=== PATIENT | male | born 1960 | race Caucasian/White ===

== ENCOUNTER 2017-03-10 12:22 | Observation (INO) | payer OTHER ==
[2017-03-10 13:05] LABS: ABSOLUTE BASOPHILS # (AUTO) 0.1 10^3/uL (0.0-0.2); ABSOLUTE EOSINOPHILS # (AUTO) 0.1 10^3/uL (0.0-0.6); ABSOLUTE LYMPHOCYTES (AUTO) 1.9 10^3/uL (0.5-4.7); ABSOLUTE MONOCYTES (AUTO) 0.5 10^3/uL (0.1-1.4); ABSOLUTE NEUT (AUTO) 3.1 10^3/uL (1.7-8.2); BASOPHILS % (AUTO) 1.1 % (0-2); EOSINOPHILS % (AUTO) 2.2 % (0-6); HEMATOCRIT 40.1 % (37.9-51.0); HEMOGLOBIN 14.1 g/dL (13.5-17.0); HGB HCT DIFFERENCE 2.2; MEAN CORPUSCULAR HEMOGLOBIN 33.2 pg (27.0-33.4); MEAN CORPUSCULAR HGB CONC 35.1 g/dL (32.0-36.0); MEAN CORPUSCULAR VOLUME 95 fl (80-97); MONOCYTES % (AUTO) 8.7 % (3-13); RED BLOOD COUNT 4.24 10^6/uL (4.35-5.55); RED CELL DISTRIBUTION WIDTH 13.3 % (11.5-14.0); WHITE BLOOD COUNT 5.7 10^3/uL (4.0-10.5)
[2017-03-10 13:17] LABS: ALANINE AMINOTRANSFERASE 32 U/L (21-72); ALBUMIN 4.3 g/dL (3.5-5.0); ALKALINE PHOSPHATASE 58 U/L (38-126); ANION GAP 12 (5-19); ASPARTATE AMINO TRANSFERASE 31 U/L (17-59); BILIRUBIN,DIRECT 0.3 mg/dL (0.0-0.4); BILIRUBIN,TOTAL 0.5 mg/dL (0.2-1.3); BLOOD UREA NITROGEN 13 mg/dL (7-20); CALCIUM 9.1 mg/dL (8.4-10.2); CARBON DIOXIDE 27 mmol/L (22-30); CHLORIDE 107 mmol/L (98-107); CREATINE KINASE 267 U/L (55-170); CREATININE RESULT 0.79 mg/dL (0.52-1.25); GLUCOSE 92 mg/dL (75-110); POTASSIUM 4.1 mmol/L (3.6-5.0); SODIUM 146.3 mmol/L (137-145)
[2017-03-10] MEDS ORDERED: PROCHLORPERAZINE EDISYLATE INJ 10 MG/2 ML VIAL IV ONE (13:17)
[2017-03-10] MEDS ORDERED: DIPHENHYDRAMINE HCL 50 MG/ML VIAL IV ONE (13:17)
[2017-03-10 13:29] LABS: CREATINE KINASE MB 2.94 ng/mL (<4.55)
[2017-03-10 13:30] LABS: TROPONIN I < 0.012 ng/mL
--- NOTE | 2017-03-10 13:49 | RADIOLOGY REPORT (SQ) ---
EXAM DESCRIPTION: CHEST SINGLE VIEW COMPLETED DATE/TIME: 03/10/2017 12:58 pm REASON FOR STUDY: cp COMPARISON: 03/30/2011 EXAM PARAMETERS: NUMBER OF VIEWS: One view. TECHNIQUE: Single frontal radiographic view of the chest acquired. RADIATION DOSE: NA LIMITATIONS: None. FINDINGS: LUNGS AND PLEURA: No opacities, masses or pneumothorax. No pleural effusion. MEDIASTINUM AND HILAR STRUCTURES: No masses. Contour normal. HEART AND VASCULAR STRUCTURES: Heart normal in size. Normal vasculature. BONES: No acute findings. HARDWARE: None in the chest. OTHER: No other significant finding. IMPRESSION: NO ACUTE RADIOGRAPHIC FINDING IN THE CHEST. TECHNICAL DOCUMENTATION: JOB ID: [id number]
--- NOTE | 2017-03-10 14:20 | ER Document Report ---
ED General - General Chief Complaint: Chest Pain Stated Complaint: CHEST PAIN Time Seen by Provider: 03/10/17 12:32 Mode of Arrival: Ambulatory Information source: Patient Notes: 57 yr old male presents with complaints of midsternal left sided chest pressure sensation. Patient has a history of hypercholesterolemia hypertension. Denies any previous cardiac episodes. Patient is unsure if he has had a stress test or not 3 years ago. Patient overall states that he has had a headache as well for 3-4 days as well as his chest pressure - HPI Onset: Other - 2-3 days Onset/Duration: Persistent Quality of pain: Pressure Severity: Mild Pain Level: 1 Associated symptoms: Chest pain, Headache Exacerbated by: Denies Relieved by: Denies Similar symptoms previously: No Recently seen / treated by doctor: No - Related Data Allergies/Adverse Reactions: No Known Allergies Allergy (Unverified 03/30/11 19:41) Past Medical History - Social History Smoking Status: Current Every Day Smoker Cigarette use (# per day): Yes Chew tobacco use (# tins/day): No Smoking Education Provided: No Frequency of alcohol use: None Drug Abuse: None Family History: Reviewed & Not Pertinent - Past Medical History Cardiac Medical History: Reports: Hx Hypercholesterolemia, Hx Hypertension Pulmonary Medical History: Reports: Hx Bronchitis, Hx Pneumonia Past Surgical History: Reports: Hx Nose Surgery - rhinoplasty, Hx Orthopedic Surgery - lower back surgery, bilateral carpal tunnel, L elbow surgery Review of Systems - Review of Systems Notes: REVIEW OF SYSTEMS: CONSTITUTIONAL : Denies fever, chills, or sweats. Denies recent illness. EENT: Denies eye, ear, throat, or mouth pain or symptoms. Denies nasal or sinus congestion or discharge. Denies throat, tongue, or mouth swelling or difficulty swallowing. CARDIOVASCULAR: admits to chest pain RESPIRATORY: Denies cough, cold, or chest congestion. Denies shortness of breath, difficulty breathing, or wheezing. GASTROINTESTINAL: Denies abdominal pain or distention. Denies nausea, vomiting , or diarrhea. Denies blood in vomitus, stools, or per rectum. Denies black, tarry stools. Denies constipation. GENITOURINARY: Denies difficulty urinating, painful urination, burning, frequency, blood in urine, or discharge. MUSCULOSKELETAL: Denies back or neck pain or stiffness. Denies joint pain or swelling. SKIN: Denies rash, lesions or sores. HEMATOLOGIC : Denies easy bruising or bleeding. LYMPHATIC: Denies swollen, enlarged glands. NEUROLOGICAL: admits to headache PSYCHIATRIC: Denies anxiety or stress. Denies depression, suicidal ideation, or homicidal ideation. ALL OTHER SYSTEMS REVIEWED AND NEGATIVE. Dictation was performed using [email or web address] voice recognition software PHYSICAL EXAMINATION: GENERAL: Well-appearing, well-nourished and in no acute distress. HEAD: Atraumatic, normocephalic. EYES: Pupils equal round and reactive to light, extraocular movements intact, sclera anicteric, conjunctiva are normal. ENT: Nares patent, oropharynx clear without exudates. Moist mucous membranes. NECK: Normal range of motion, supple without lymphadenopathy LUNGS: Breath sounds clear to auscultation bilaterally and equal. No wheezes rales or rhonchi. HEART: Regular rate and rhythm without murmurs ABDOMEN: Soft, nontender, nondistended abdomen. No guarding, no rebound. No masses appreciated. Musculoskeletal: Normal range of motion, no pitting or edema. No cyanosis. NEUROLOGICAL: Cranial nerves grossly intact. Normal speech, normal gait. Normal sensory, motor exams PSYCH: Normal mood, normal affect. SKIN: Warm, Dry, normal turgor, no rashes or lesions noted. Physical Exam - Vital signs Vitals: Resp Pulse Ox 12 100 03/10/17 12:35 03/10/17 12:35 Course - Re-evaluation Re-evalutation: 03/10/17 14:29 1st set of cardiac enzymes were negative, pt was treated for his headahce and notes complete resolution pt denies any other concerns at this time, I will observe in the hospital for acs rule out - Vital Signs Vital signs: Temp Pulse Resp BP Pulse Ox 20 128/84 H 99 03/10/17 13:01 03/10/17 13:01 03/10/17 13:01 - Laboratory Result Diagrams: 03/10/17 12:40 03/10/17 12:40 Laboratory results interpreted by me: 03/10/17 03/10/17 12:40 12:40 RBC 4.24 L Sodium 146.3 H Creatine Kinase 267 H - Diagnostic Test Radiology reviewed: Image reviewed, Reports reviewed - EKG Interpretation by Me EKG shows normal: Sinus rhythm, [place], Intervals, QRS Complexes Discharge - Discharge Clinical Impression: Chest pain Qualifiers: Chest pain type: unspecified Qualified Code(s): R07.9 - Chest pain, unspecified Headache Qualifiers: Headache type: unspecified Headache chronicity pattern: acute headache Intractability: not intractable Qualified Code(s): R51 - Headache Condition: Stable Disposition: ADMITTED OBSERVATION Admitting Provider: Hospitalist Unit Admitted: Telemetry Referrals: SIVLINO ÁLVAREZ FNP [Primary Care Provider] - Follow up as needed
[2017-03-10] MEDS ORDERED: ONDANSETRON 4 MG TAB.RAPDIS PO PRN (15:33)
[2017-03-10] MEDS ORDERED: ACETAMINOPHEN 325 MG TABLET PO PRN (15:33)
[2017-03-10] MEDS ORDERED: HYDROCODONE/ACETAMINOPHEN 10-325 MG TABLET PO PRN (15:40)
[2017-03-10] MEDS ORDERED: DEXTROSE 40% GEL 15 GM TUBE PO PRN ×2 (15:53)
[2017-03-10] MEDS ORDERED: DEXTROSE 50%-WATER 25 GM/50 ML DISP.SYRIN IV PRN ×2 (15:53)
[2017-03-10] MEDS ORDERED: GLUCAGON,HUMAN RECOMB 1 MG INJ SUBCUT PRN (15:53)
--- NOTE | 2017-03-10 15:55 | PDOC H&P ---
History of Present Illness Admission Date/PCP: 03/10/17 14:56 ANETTE FRANK Patient complains of: Headache and chest pain for 2 days History of Present Illness: JOHN RANDHAWA is a 57 year old male sent to the emergency room with complaint of headache that is very severe. Patient reports that he does have history of migraines and states that he has had headache for proximal approximately 3 days. Patient reports that in the past he has had Botox injections for migraines that did help. Patient states that that has been several years ago and he has not followed up with the neurologist that did that procedure for him. Patient also reports that he has been lifting heavy objects out at home. Patient also reports that he has been doing a lot of gardening as well. Patient states that he does not develop chest pain 2 days ago and was noted to be sweating with episode. Patient denies any shortness of breath or nausea or vomiting. Patient states his past medical history is only significant for hypertension hyperlipidemia and migraines. Patient does report that he smokes a pack per day for greater than 30 years. She reports that in [place] he had a cardiac workup done 5 years ago for syncope which was negative. Past Medical History Cardiac Medical History: Reports: Hyperlipidema, Hypertension Pulmonary Medical History: Reports: Bronchitis, Pneumonia Past Surgical History Past Surgical History: Reports: Orthopedic Surgery - lower back surgery, bilateral carpal tunnel, L elbow surgery Social History Smoking Status: Current Every Day Smoker - Advance Directive Resuscitation Status: Full Code Family History Family History: Reviewed & Not Pertinent Parental Family History Reviewed: Yes Children Family History Reviewed: Yes Sibling(s) Family History Reviewed.: Yes Medication/Allergy Home Medications: Lisinopril/Hydrochlorothiazide [Zestoretic 10-12.5 mg Tablet] 1 tab PO DAILY 01/30 Aspirin [Aspirin 81 mg Chewable Tablet] 81 mg PO DAILY 03/10/17 Hydrocodone Bit/Acetaminophen [Hydrocodon-Acetaminophn 10-325] 0.5 tab PO BIDP PRN 03/10/17 Simvastatin [Zocor 10 mg Tablet] 10 mg PO QHS 03/10/17 Allergies/Adverse Reactions: No Known Allergies Allergy (Unverified 03/30/11 19:41) Review of Systems Constitutional: ABSENT: chills, fever(s), headache(s), weight gain, weight loss Eyes: ABSENT: visual disturbances Ears: ABSENT: hearing changes Cardiovascular: PRESENT: chest pain. ABSENT: dyspnea on exertion, edema, orthropnea, palpitations Respiratory: ABSENT: cough, hemoptysis Gastrointestinal: ABSENT: abdominal pain, constipation, diarrhea, hematemesis, hematochezia, nausea, vomiting Genitourinary: ABSENT: dysuria, hematuria Musculoskeletal: PRESENT: back pain, muscle weakness Integumentary: ABSENT: rash, wounds Neurological: PRESENT: other - Headache Psychiatric: ABSENT: anxiety, depression, homidical ideation, suicidal ideation Endocrine: ABSENT: cold intolerance, heat intolerance, polydipsia, polyuria Hematologic/Lymphatic: ABSENT: easy bleeding, easy bruising Physical Exam Vital Signs: Temp Pulse Resp BP Pulse Ox 12 143/80 H 98 03/10/17 15:01 03/10/17 15:01 03/10/17 15:01 General appearance: PRESENT: mild distress, well-developed, well-nourished Head exam: PRESENT: atraumatic, normocephalic Eye exam: PRESENT: conjunctiva pink, EOMI. ABSENT: scleral icterus Ear exam: PRESENT: normal external ear exam Mouth exam: PRESENT: moist, tongue midline Neck exam: ABSENT: carotid bruit, JVD, lymphadenopathy, thyromegaly Respiratory exam: PRESENT: clear to auscultation kun. ABSENT: rales, rhonchi, wheezes Cardiovascular exam: PRESENT: RRR. ABSENT: diastolic murmur, rubs, systolic murmur Pulses: PRESENT: normal dorsalis pedis pul Vascular exam: PRESENT: normal capillary refill GI/Abdominal exam: PRESENT: normal bowel sounds, soft. ABSENT: distended, guarding, mass, organolmegaly, rebound, tenderness Rectal exam: PRESENT: deferred Extremities exam: PRESENT: full ROM. ABSENT: calf tenderness, clubbing, pedal edema Musculoskeletal exam: PRESENT: other - Positive for subscapularis tenderness positive for trapezius muscle tenderness underneath arms bilaterally into lower aspect of chest. No tenderness to palpation along the clavicles bilaterally Neurological exam: PRESENT: alert, awake, oriented to person, oriented to place , oriented to time, oriented to situation, CN II-XII grossly intact, motor sensory deficit, other - It has returned off and room eyes were closed patient spoke to me during most of encounter with eyes closed. Psychiatric exam: PRESENT: appropriate affect, normal mood. ABSENT: homicidal ideation, suicidal ideation Skin exam: PRESENT: dry, intact, warm. ABSENT: cyanosis, rash Results Impressions: Chest X-Ray 03/10/17 12:28 IMPRESSION: NO ACUTE RADIOGRAPHIC FINDING IN THE CHEST. Assessment & Plan - Diagnosis (1) Migraine Is this a current diagnosis for this admission?: Yes Plan: Patient given Benadryl and Compazine in the emergency room. Patient is currently sleeping. Will monitor patient. (2) Chest pain Qualifiers: Chest pain type: unspecified Qualified Code(s): R07.9 - Chest pain, unspecified Is this a current diagnosis for this admission?: Yes Plan: Patient's chest pain is most likely musculoskeletal related due to patient having reproducible chest pain on exam. Patient's first set of troponins are negative. Have ordered for EKG. Have ordered for serial troponins. Will order 2D echo and nuclear stress test for a.m. Have ordered hemoglobin A1c and lipid profile as well. (3) Musculoskeletal chest pain Is this a current diagnosis for this admission?: Yes Plan: Supportive care. (4) Tobacco abuse Is this a current diagnosis for this admission?: Yes Plan: Discussed the importance of discontinuing tobacco abuse. (5) Hypernatremia Is this a current diagnosis for this admission?: Yes Plan: Check BMP and a.m. Patient most likely slightly volume depleted. Will give IV fluids. (6) Cervical spine disease Is this a current diagnosis for this admission?: Yes Plan: Patient has history of degenerative cervical spine disease. This is most likely contributing to patient's back pain as well as to patient's migraines. Recommend supportive care. (7) DVT prophylaxis Is this a current diagnosis for this admission?: Yes Plan: SCDs (8) Volume depletion Is this a current diagnosis for this admission?: Yes Plan: We will place patient on light maintenance fluids. - Time Time Spent: 30 to 50 Minutes
[2017-03-10] MEDS ORDERED: INFLUENZA ADLT QUAD (36MOS+) 2017-18 VAC 0.5 ML SYR IM PRN (16:58)
[2017-03-10] MEDS ORDERED: NICOTINE 21 MG/24 HR PATCH.TD24 TD ONE (18:30)
[2017-03-10] MEDS ORDERED: HYDROCHLOROTHIAZIDE 12.5 MG CAPSULE PO ONE (18:30)
[2017-03-10] MEDS ORDERED: LISINOPRIL 10 MG TABLET PO ONE (18:30)
[2017-03-10] MEDS ORDERED: SIMVASTATIN 10 MG TABLET PO SCH (22:00)
[2017-03-11] MEDS ORDERED: LANSOPRAZOLE 30 MG TAB.RAP.DR PO SCH (06:00)
[2017-03-11 06:48] LABS: ANION GAP 12 (5-19); BLOOD UREA NITROGEN 14 mg/dL (7-20); CALCIUM 9.8 mg/dL (8.4-10.2); CARBON DIOXIDE 27 mmol/L (22-30); CHLORIDE 107 mmol/L (98-107); CHOLESTEROL 198.05 mg/dL (0-200); CREATININE RESULT 0.94 mg/dL (0.52-1.25); Direct HDL 54 mg/dL (>40); GLUCOSE 106 mg/dL (75-110); POTASSIUM 4.8 mmol/L (3.6-5.0); SODIUM 146.2 mmol/L (137-145); TRIGLYCERIDES 165 mg/dL (<150)
[2017-03-11 06:59] LABS: DIRECT LDL 122 mg/dL (<100)
[2017-03-11 07:20] LABS: THYROID STIMULATING HORMONE 2.61 uIU/mL (0.47-4.68)
[2017-03-11] MEDS ORDERED: LISINOPRIL 10 MG TABLET PO SCH (10:00)
[2017-03-11] MEDS ORDERED: HYDROCHLOROTHIAZIDE 12.5 MG CAPSULE PO SCH (10:00)
[2017-03-11] MEDS ORDERED: NICOTINE 21 MG/24 HR PATCH.TD24 TD SCH (10:00)
[2017-03-11] MEDS ORDERED: ASPIRIN 81 MG TABLET, CHEWABLE PO SCH (10:00)
[2017-03-11] MEDS ORDERED: (PENDING PHARMACY ID) (Lisinopril/Hydrochlorothiazide [Zestoretic 10-12.5 Mg Tablet] 1 TAB PO SCH (10:00)
--- NOTE | 2017-03-11 10:33 | EKG REPORT ---
SEVERITY:- ABNORMAL ECG - SINUS RHYTHM MULTIPLE VENTRICULAR PREMATURE COMPLEXES RBBB AND LPFB : Confirmed by: Keisha Nash MD 11-Mar-2017 10:32:29
--- NOTE | 2017-03-11 10:33 | EKG REPORT ---
SEVERITY:- ABNORMAL ECG - SINUS RHYTHM PAIRED VENTRICULAR PREMATURE COMPLEXES FIRST DEGREE AV BLOCK PROBABLE LEFT ATRIAL ABNORMALITY RIGHT BUNDLE BRANCH BLOCK : Confirmed by: Keisha Nash MD 11-Mar-2017 10:32:36
--- NOTE | 2017-03-11 13:07 | DRAGON STRESS TEST REPORT ---
INTRAVENOUS LEXISCAN CARDIOLITE STRESS TEST USING SINGLE PHOTON EMMISION COMPUTERIZED TOMOGRAPHIC. DATE OF PROCEDURE: March 11, 2017 INDICATION : Chest pain CARDIAC RISK FACTORS: Hypertension dyslipidemia and smoking RESTING EKG: Sinus rhythm, right bundle branch block pattern, frequent ventricular ectopies STRESS EKG: No significant changes noted with LexiScan bolus REASON FOR TERMINATION: Protocol. PROCEDURE REPORT: Baseline heart rate 71 beats per minute with blood pressure of 106/75. Patient had no significant complaints. Heart rate at 2 minutes post bolus 77 with a blood pressure of 114/66. 3 minutes post bolus heart rate 74 with blood pressure of 101/57. No significant EKG changes were noted. Patient had a hypotensive response with nausea and diaphoresis but no significant ST segment changes were noted.. Patient injected with Aminophyllin 75 mg at 3 minutes or later after Lexiscan bolus. CONCLUSIONS: Normal EKG and hemodynamic response to IV LexiScan. NUCLEAR DATA: At rest the patient was given 14.09 millicuries of technetium 99 sestamibi injected intravenously. As per protocol rest gated SPECT images were obtained. Subsequently the patient was given intravenous LexiScan at a dose of 0.4 mg in 5 mL intravenously, followed by flush with normal saline. Subsequently the stress dose of 42.0 millicuries of technetium 99 sestamibi was injected intravenously. As per protocol stress gated images were obtained. NUCLEAR INTERPRETATION: Both raw and processed data were used for interpretation. Visual, qualitative, computer-generated quantitative data was used. There was good myocardial uptake of technetium compound. Motion artifact and soft tissue attenuations were noted. Increased visceral uptake was noted. No definitive areas of transient perfusion defect noted. No definitive areas of fixed perfusion defect or scars noted. EKG gated imaging showed LV EF at 44 %, rest and stress gated EF similar visually. T. I D. ratio was 1.14. Lung heart ratio noted to be within normal limits 0.37. No significant extracardiac and abnormal radiotracer activities were noted. RV free wall uptake was noted to be WNL. IMPRESSION: Also refer to comments under nuclear interpretation. Also test results needs to be interpreted in the context of pretest probability. 1. There is no definitive scintigraphic evidence of LexiScan induced myocardial ischemia. 2. There is no definitive scintigraphic evidence of myocardial infarction/scar. 3. EKG gated imaging shows left ventricular ejection fraction of approximately 44 %. 4. Clinical correlation requested as occasionally single vessel disease or balanced ischemia could be missed. In approximately 10% of the cases Lexiscan may not cause adequate vasodilatory stress. RECOMMENDATIONS: Aggressive risk factor modification, medical therapy. Clinical correlation with echocardiogram derived ejection fraction. Inability to exercise by itself can lead to increased cardiovascular event risks. Consider cardiology consultation and or follow-up if clinically indicated. I AM AVAILABLE FOR CARDIOLOGY CONSULTATION AND FOLLOWUP IF REQUESTED BY PMD Tima Owen M.D., [facility] [employer], Board certified in cardiovascular diseases, Nuclear cardiology, Echocardiography Cardiac CT and cardiac MRI Ph. [phone] [facility]
[2017-03-11] MEDS ORDERED: REGADENOSON INJ 0.4 MG/5 ML DISP.SYRIN IV ONE (14:07)
[2017-03-11] MEDS ORDERED: AMINOPHYLLINE INJ/PF 250 MG/10 ML SDV IV ONE (14:07)
--- NOTE | 2017-03-11 14:28 | PDOC DISCHARGE SUMMARY ---
General - Admit/Disc Date/PCP Admission Date/Primary Care Provider: 03/10/17 15:33 ANETTE FRANK Discharge Date: 03/11/17 - Discharge Diagnosis (1) Migraine Is this a current diagnosis for this admission?: Yes Summary: Continue home medication and cervical spine pillow (2) Chest pain Is this a current diagnosis for this admission?: Yes Summary: Stress test demonstrates no evidence of ischemia. 2D echo pending at time of discharge. (3) Musculoskeletal chest pain Is this a current diagnosis for this admission?: Yes Summary: Encourage patient to follow with PCP for chronic back pain and neck pain. Patient told to avoid lifting heavy objects (4) Tobacco abuse Is this a current diagnosis for this admission?: Yes Summary: Encourage discontinue use of tobacco products (5) Hypernatremia Is this a current diagnosis for this admission?: Yes Summary: Encourage increased water intake. (6) Cervical spine disease Is this a current diagnosis for this admission?: Yes Summary: Cervical neck pillow and follow with primary doctor (7) Volume depletion Is this a current diagnosis for this admission?: Yes Summary: Patient given IV fluids while in hospital - Additional Information Resuscitation Status: Full Code Discharge Diet: Cardiac Discharge Activity: Activity As Tolerated Home Medications: Lisinopril/Hydrochlorothiazide [Zestoretic 10-12.5 mg Tablet] 1 tab PO DAILY 01/30 Aspirin [Aspirin 81 mg Chewable Tablet] 81 mg PO DAILY 03/10/17 Hydrocodone Bit/Acetaminophen [Hydrocodon-Acetaminophn 10-325] 0.5 tab PO BIDP PRN 03/10/17 Simvastatin [Zocor 10 mg Tablet] 10 mg PO QHS 03/10/17 History of Present Illness Patient complains of: Chest pain and headache History of Present Illness: JOHN RANDHAWA is a 57 year old male sent to the emergency room with complaint of headache that is very severe. Patient reports that he does have history of migraines and states that he has had headache for proximal approximately 3 days. Patient reports that in the past he has had Botox injections for migraines that did help. Patient states that that has been several years ago and he has not followed up with the neurologist that did that procedure for him. Patient also reports that he has been lifting heavy objects out at home. Patient also reports that he has been doing a lot of gardening as well. Patient states that he does not develop chest pain 2 days ago and was noted to be sweating with episode. Patient denies any shortness of breath or nausea or vomiting. Patient states his past medical history is only significant for hypertension hyperlipidemia and migraines. Patient does report that he smokes a pack per day for greater than 30 years. She reports that in [place] he had a cardiac workup done 5 years ago for syncope which was negative. Hospital Course Hospital Course: 57 year old presented with complaint of headache and chest pain. Pt was treated for migraine. Pt was arranged for stress test which was normal. Pt's troponins were normal. Pt was sodium was elevated at time of admission. Pt was given IVFs for volume expansion. Pt did well without anyother issues. Physical Exam Vital Signs: Temp Pulse Resp BP Pulse Ox 98.6 F 47 L 12 119/66 99 03/11/17 12:42 03/11/17 12:42 03/11/17 12:42 03/11/17 12:42 03/11/17 12:42 Intake & Output 03/10/17 03/11/17 03/12/17 06:59 06:59 06:59 Intake Total 400 Balance 400 Weight 88.7 kg General appearance: PRESENT: no acute distress, well-developed, well-nourished Head exam: PRESENT: atraumatic, normocephalic Eye exam: PRESENT: conjunctiva pink, EOMI. ABSENT: scleral icterus Ear exam: PRESENT: normal external ear exam Mouth exam: PRESENT: moist, tongue midline Neck exam: ABSENT: carotid bruit, JVD, lymphadenopathy, thyromegaly Respiratory exam: PRESENT: clear to auscultation kun. ABSENT: rales, rhonchi, wheezes Cardiovascular exam: PRESENT: RRR. ABSENT: diastolic murmur, rubs, systolic murmur Pulses: PRESENT: normal dorsalis pedis pul Vascular exam: PRESENT: normal capillary refill GI/Abdominal exam: PRESENT: normal bowel sounds, soft. ABSENT: distended, guarding, mass, organolmegaly, rebound, tenderness Rectal exam: PRESENT: deferred Extremities exam: PRESENT: full ROM. ABSENT: calf tenderness, clubbing, pedal edema Neurological exam: PRESENT: alert, awake, oriented to person, oriented to place , oriented to time, oriented to situation, CN II-XII grossly intact. ABSENT: motor sensory deficit Psychiatric exam: PRESENT: appropriate affect, normal mood. ABSENT: homicidal ideation, suicidal ideation Skin exam: PRESENT: dry, intact, warm. ABSENT: cyanosis, rash Results Laboratory Results: 03/11/17 05:55 03/11/17 03/11/17 05:55 05:55 Sodium 146.2 H Potassium 4.8 Chloride 107 Carbon Dioxide 27 Anion Gap 12 BUN 14 Creatinine 0.94 Est GFR ( Amer) > 60 Est GFR (Non-Af Amer) > 60 Glucose 106 Calcium 9.8 Triglycerides 165 H Cholesterol 198.05 LDL Cholesterol Direct 122 H VLDL Cholesterol 33.0 H HDL Cholesterol 54 TSH 2.61 Free T4 0.83 03/10/17 03/10/17 03/11/17 17:35 23:55 05:55 Troponin I < 0.012 0.014 < 0.012 Impressions: Chest X-Ray 03/10/17 12:28 IMPRESSION: NO ACUTE RADIOGRAPHIC FINDING IN THE CHEST.
[2017-03-11 14:48] VITALS: BP 133/76
== END 2017-03-11 15:05 | disposition home or self-care (01) ==
LOC: ER 12:22 → EH 14:56 → UNDOADMOB 14:56 → 4N 15:33 → EH 16:08 → 4N 16:08
PROC: 3E0234Z Introduction of Serum, Toxoid and Vaccine into Muscle, Percutaneous Approach (ICD-10-PCS; principal; 2017-03-11)
DX: G43.909 Migraine, unspecified, not intractable, without status migrainosus (principal); R07.89 Other chest pain; F17.210 Nicotine dependence, cigarettes, uncomplicated; Z23 Encounter for immunization; E87.0 Hyperosmolality and hypernatremia; E86.9 Volume depletion, unspecified; M50.30 Other cervical disc degeneration, unspecified cervical region; G89.29 Other chronic pain; Z79.899 Other long term (current) drug therapy; Z79.82 Long term (current) use of aspirin; I10 Essential (primary) hypertension; M54.9 Dorsalgia, unspecified; Z98.890 Other specified postprocedural states
CPT/HCPCS: 93005 ×2; 99285; 96374; 96375; 36415 ×2; 84439; 82553; 82550; 84443; 85025; 80048; 80053; 84484 ×2; 83036; 80061; 93017; 71010; 78452; 90686; 93010; A9500; J2785; J1200; J0780; J0280; Q9969